=== PATIENT | male | born 1990 | race Two or more races ===

== ENCOUNTER 2016-12-27 13:39 | Emergency (ER) | payer SELFPAY ==
[~2016-12-27] VITALS: Ht 167.6 cm; Wt 79.4 kg
[2016-12-27 13:40] VITALS: BP 140/92
== END 2016-12-27 14:36 | disposition home or self-care (01) ==
LOC: ER 13:42
DX: F41.9 Anxiety disorder, unspecified (principal); E78.5 Hyperlipidemia, unspecified
CPT/HCPCS: A4606; Z7502; Z7610